=== PATIENT | female | born 2000 | race Two or more races ===

== ENCOUNTER → 2022-05-03 | Outpatient (CLI) | payer OTHER | END | disposition home or self-care (01) | LOC: LAB 09:32 | PROVIDERS: ATTEND Obstetrics & Gynecology | DX: Z34.00 Encounter for supervision of normal first pregnancy, unspecified trimester (principal); Z3A.00 Weeks of gestation of pregnancy not specified | CPT/HCPCS: 36415; 84702 ==

== ENCOUNTER → 2022-06-22 | Outpatient (CLI) | payer OTHER ==
[2022-06-22 10:14] LABS: Basophils # (auto) 0.1 10 ^3/uL (0-0.2); Basophils % (auto) 0.8 % (0.0-2.0); Eosinophils # (auto) 0 10 ^3/uL (0-0.8); Eosinophils % (auto) 0.6 % (0.0-7.0); Hematocrit 33.5 % (36.0-46.0); Hemoglobin 11.7 g/dL (12.2-16.2); Lymphocytes # (auto) 1.3 10 ^3/uL (0.4-5.4); Lymphocytes % (auto) 20.7 % (10.0-50.0); Mean Corpuscular Hgb Conc. 34.8 g/dL (32.0-36.0); Mean Corpuscular Volume 86.1 fL (80.0-100.0); Monocytes # (auto) 0.4 10 ^3/uL (0-1.3); Monocytes % (auto) 5.9 % (0.0-12.0); Neutrophils # (auto) 4.7 10 ^3/uL (1.6-8.6); Red Blood Cells 3.89 10^6/uL (4.0-5.20); Red Cell Distribution Width 13.3 % (11.8-14.3); White Blood Cell 6.5 10^3/uL (4.4-10.8)
[2022-06-22 10:58] LABS: Alcohol, Urine < 3.0 mg/dL (0-10); Amphetamine Screen, Urine NEGATIVE (NEGATIVE); Barbiturate Scree,Urine NEGATIVE (NEGATIVE); Benzodiazephine Screen, Urine NEGATIVE (NEGATIVE); Cannabinoid Screen, Urine NEGATIVE (NEGATIVE); Cocaine Screen, Urine NEGATIVE (NEGATIVE); Opiate Scree,Urine NEGATIVE (NEGATIVE); Phencyclidine Screen, Urine NEGATIVE (NEGATIVE)
[2022-06-23 08:07] LABS: RPR Non Reactive (Non Reactive)
== END | disposition home or self-care (01) ==
LOC: LAB 09:31
PROVIDERS: ATTEND Obstetrics & Gynecology
DX: Z34.00 Encounter for supervision of normal first pregnancy, unspecified trimester (principal); Z31.430 Encounter of female for testing for genetic disease carrier status for procreative management; Z11.3 Encounter for screening for infections with a predominantly sexual mode of transmission; N39.0 Urinary tract infection, site not specified; Z3A.00 Weeks of gestation of pregnancy not specified
CPT/HCPCS: 36415; 80307; 83036; 84112; 84144; 84702; 85025; 86592; 86703; 86762; 86850; 86900; 86901; 87086; 87340

== ENCOUNTER 2022-09-07 14:34 | Emergency (ER) | payer MEDICAID, OTHER ==
[~2022-09-07] VITALS: Ht 165.1 cm; Wt 75.0 kg
[2022-09-07 15:59] LABS: Albumin 3.2 g/dL (3.4-5.0); Calcium 8.8 mg/dL (8.5-10.1); Potassium 4.5 mmol/L (3.5-5.1)
[2022-09-07 16:02] LABS: BUN/Creatinine Ratio 14.3 (10.0-20.0); Bilirubin, Total 0.3 mg/dL (0.2-1.0); Total Protein 6.7 g/dL (6.4-8.2)
[2022-09-07 16:55] LABS: Basophils # (auto) 0 10 ^3/uL (0-0.2); Basophils % (auto) 0.2 % (0.0-2.0); Eosinophils # (auto) 0 10 ^3/uL (0-0.8); Eosinophils % (auto) 0.3 % (0.0-7.0); Hematocrit 32.6 % (36.0-46.0); Hemoglobin 11.1 g/dL (12.2-16.2); Lymphocytes # (auto) 1.1 10 ^3/uL (0.4-5.4); Mean Corpuscular Hemoglobin 30.8 pg (28.0-32.0); Mean Corpuscular Volume 90.6 fL (80.0-100.0); Monocytes # (auto) 0.8 10 ^3/uL (0-1.3); Monocytes % (auto) 6.7 % (0.0-12.0); Neutrophils # (auto) 9.8 10 ^3/uL (1.6-8.6); Neutrophils % (auto) 83.8 % (37.0-80.0); Nucleated Red Blood Cells % 0.1 %; Red Cell Distribution Width 13.2 % (11.8-14.3); White Blood Cell 11.7 10^3/uL (4.4-10.8)
[2022-09-07 18:53] VITALS: BP 120/67
[2022-09-07 19:36] LABS: Urine Bacteria NONE SEEN /hpf (None Seen); Urine Blood Negative /uL (Negative); Urine Mucus FEW (None Seen); Urine Specific Gravity 1.017 (1.001-1.035); Urine WBC 23 /hpf (0 - 5)
== END 2022-09-07 18:53 | disposition home or self-care (01) ==
LOC: ER 14:34
DX: O9A.212 Injury, poisoning and certain other consequences of external causes complicating pregnancy, second trimester (principal); S30.1XXA Contusion of abdominal wall, initial encounter; M79.604 Pain in right leg; Z3A.23 23 weeks gestation of pregnancy; V49.49XA Driver injured in collision with other motor vehicles in traffic accident, initial encounter; Y93.I9 Activity, other involving external motion; Y92.89 Other specified places as the place of occurrence of the external cause; Y99.8 Other external cause status
CPT/HCPCS: 36415; 76805; 80053; 81001; 85025

== ENCOUNTER → 2022-10-06 | Outpatient (CLI) | payer MEDICAID ==
[2022-10-06 08:46] LABS: Basophils # (auto) 0 10 ^3/uL (0-0.2); Basophils % (auto) 0.4 % (0.0-2.0); Eosinophils # (auto) 0.1 10 ^3/uL (0-0.8); Eosinophils % (auto) 0.8 % (0.0-7.0); Hematocrit 32.9 % (36.0-46.0); Hemoglobin 11.3 g/dL (12.2-16.2); Lymphocytes # (auto) 1.6 10 ^3/uL (0.4-5.4); Mean Corpuscular Hemoglobin 31.3 pg (28.0-32.0); Mean Corpuscular Hgb Conc. 34.4 g/dL (32.0-36.0); Mean Corpuscular Volume 90.9 fL (80.0-100.0); Monocytes # (auto) 0.7 10 ^3/uL (0-1.3); Monocytes % (auto) 8.2 % (0.0-12.0); Neutrophils # (auto) 6.2 10 ^3/uL (1.6-8.6); Neutrophils % (auto) 71.6 % (37.0-80.0); Nucleated Red Blood Cells % 0.1 %; Red Blood Cells 3.61 10^6/uL (4.0-5.20); Red Cell Distribution Width 13.5 % (11.8-14.3); White Blood Cell 8.6 10^3/uL (4.4-10.8)
== END | disposition home or self-care (01) ==
LOC: LAB 08:20
PROVIDERS: ATTEND Obstetrics & Gynecology
DX: Z34.00 Encounter for supervision of normal first pregnancy, unspecified trimester (principal); Z3A.00 Weeks of gestation of pregnancy not specified
CPT/HCPCS: 36415; 82951; 85025

== ENCOUNTER 2022-10-27 08:05 | Observation (INO) | payer MEDICAID | END 2022-10-27 10:15 | disposition home or self-care (01) | LOC: UNDOADMOB 08:05 → LDRP 08:05 → UNDODISOB 10:15 | PROVIDERS: ADMIT Obstetrics & Gynecology; ATTEND Obstetrics & Gynecology | DX: O60.03 Preterm labor without delivery, third trimester (principal); O69.5XX2 Labor and delivery complicated by vascular lesion of cord, fetus 2; Z3A.30 30 weeks gestation of pregnancy | CPT/HCPCS: 59025; 76818; 81002; 94760; G0378 ==

== ENCOUNTER 2022-11-03 07:45 | Observation (INO) | payer MEDICAID | END 2022-11-03 10:08 | disposition home or self-care (01) | LOC: LDRP 07:45 | PROVIDERS: ADMIT Obstetrics & Gynecology; ATTEND Obstetrics & Gynecology | DX: O69.5XX0 Labor and delivery complicated by vascular lesion of cord, not applicable or unspecified (principal); Z3A.31 31 weeks gestation of pregnancy | CPT/HCPCS: 59025; 76818; 81002; G0378 ==

== ENCOUNTER → 2022-11-30 | Outpatient (CLI) | payer MEDICAID ==
[2022-11-30 10:42] LABS: Basophils # (auto) 0 10 ^3/uL (0-0.2); Basophils % (auto) 0.5 % (0.0-2.0); Eosinophils # (auto) 0.1 10 ^3/uL (0-0.8); Eosinophils % (auto) 0.6 % (0.0-7.0); Hematocrit 36.6 % (36.0-46.0); Hemoglobin 12.3 g/dL (12.2-16.2); Lymphocytes # (auto) 1.3 10 ^3/uL (0.4-5.4); Lymphocytes % (auto) 15.4 % (10.0-50.0); Mean Corpuscular Hemoglobin 30.9 pg (28.0-32.0); Mean Corpuscular Hgb Conc. 33.8 g/dL (32.0-36.0); Mean Corpuscular Volume 91.6 fL (80.0-100.0); Monocytes # (auto) 0.7 10 ^3/uL (0-1.3); Monocytes % (auto) 8.1 % (0.0-12.0); Neutrophils # (auto) 6.3 10 ^3/uL (1.6-8.6); Neutrophils % (auto) 75.4 % (37.0-80.0); Nucleated Red Blood Cells % 0.1 %; Red Blood Cells 3.99 10^6/uL (4.0-5.20); Red Cell Distribution Width 13.6 % (11.8-14.3); White Blood Cell 8.3 10^3/uL (4.4-10.8)
[2022-12-01 07:06] LABS: RPR Non Reactive (Non Reactive)
[2022-12-01 10:06] LABS: Treponema Pallidum Ab LC Non Reactive (Non Reactive)
[2022-12-02 20:06] LABS: Treponema pallidum Ab (FTA-Ab) Non Reactive (Non Reactive)
== END | disposition home or self-care (01) ==
LOC: LAB 10:15
PROVIDERS: ATTEND Obstetrics & Gynecology
DX: Z34.00 Encounter for supervision of normal first pregnancy, unspecified trimester (principal); Z3A.00 Weeks of gestation of pregnancy not specified
CPT/HCPCS: 36415; 84112; 85025; 86592

== ENCOUNTER 2022-12-14 13:20 | Observation (INO) | payer MEDICAID ==
[2022-12-14 15:36] LABS: Fern Testing Negative
== END 2022-12-14 16:00 | disposition home or self-care (01) ==
LOC: LDRP 13:20
PROVIDERS: ADMIT Obstetrics & Gynecology; ATTEND Obstetrics & Gynecology
DX: O26.893 Other specified pregnancy related conditions, third trimester (principal); N89.8 Other specified noninflammatory disorders of vagina; O62.9 Abnormality of forces of labor, unspecified; Z3A.37 37 weeks gestation of pregnancy
CPT/HCPCS: 59025; 76818; 81002; 84112; 94760; G0378; Q0114

== ENCOUNTER 2022-12-28 14:31 | Inpatient (IN) | payer MEDICAID ==
[~2022-12-28] VITALS: Ht 165.1 cm; Wt 79.4 kg
[2022-12-28 15:49] LABS: Basophils # (auto) 0 10 ^3/uL (0-0.2); Basophils % (auto) 0.3 % (0.0-2.0); Eosinophils # (auto) 0.1 10 ^3/uL (0-0.8); Eosinophils % (auto) 0.7 % (0.0-7.0); Hematocrit 34.5 % (36.0-46.0); Hemoglobin 11.9 g/dL (12.2-16.2); Lymphocytes # (auto) 1.2 10 ^3/uL (0.4-5.4); Lymphocytes % (auto) 16.4 % (10.0-50.0); Mean Corpuscular Hemoglobin 31.1 pg (28.0-32.0); Mean Corpuscular Hgb Conc. 34.4 g/dL (32.0-36.0); Mean Corpuscular Volume 90.5 fL (80.0-100.0); Monocytes # (auto) 0.6 10 ^3/uL (0-1.3); Monocytes % (auto) 7.7 % (0.0-12.0); Neutrophils # (auto) 5.5 10 ^3/uL (1.6-8.6); Neutrophils % (auto) 74.9 % (37.0-80.0); Nucleated Red Blood Cells % 0.1 %; Red Blood Cells 3.82 10^6/uL (4.0-5.20); Red Cell Distribution Width 13.8 % (11.8-14.3); White Blood Cell 7.4 10^3/uL (4.4-10.8)
[2022-12-28 16:16] LABS: Alanine Aminotransferase 19 U/L (7-40); Albumin 3.8 g/dL (3.2-4.8); Alkaline Phosphatase 169 U/L (46-116); Anion Gap 7.6 (5-15); Aspartate Aminotransferase 15 U/L (13-40); BUN/Creatinine Ratio 19.6 (10.0-20.0); Blood Urea Nitrogen 10 mg/dL (9-23); Calcium 9.2 mg/dL (8.7-10.4); Carbon Dioxide 21.4 mmol/L (20-30); Chloride 107 mmol/L (98-107); Glucose 87 mg/dL (74-106); Sodium 136 mmol/L (136-145)
[2022-12-28 16:17] LABS: Bilirubin, Total 0.4 mg/dL (0.2-1.0); Total Protein 5.8 g/dL (5.7-8.2)
[2022-12-28 16:26] LABS: Urine Bacteria NONE SEEN /hpf (None Seen); Urine Blood 3+ /uL (Negative); Urine Clarity Clear (Clear); Urine Color Yellow (Yellow); Urine Mucus FEW (None Seen); Urine Protein, UAD Negative (Negative); Urine Specific Gravity 1.018 (1.001-1.035); Urine Urobilinogen Normal (Negative); Urine WBC 13 /hpf (0 - 5)
[2022-12-28 16:34] LABS: Amphetamine Screen, Urine Neg (NEGATIVE); Protein, Urine 14.5 mg/dL (0.0-11.9)
[2022-12-28 16:35] LABS: Benzodiazephine Screen, Urine Neg (NEGATIVE)
[2022-12-28 16:36] LABS: Barbiturate Scree,Urine Neg (NEGATIVE); Cannabinoid Screen, Urine Neg (NEGATIVE); Cocaine Screen, Urine Neg (NEGATIVE); Creatinine, Urine 63.12 mg/dL (30.0-125.0); Opiate Scree,Urine Neg (NEGATIVE); Phencyclidine Screen, Urine Neg (NEGATIVE); Urine Protein/Creatinine Ratio 0.23
[2022-12-28 16:41] LABS: INR 0.91 (0.9-1.15); Partial Thromboplastin Time 26.8 SEC (24.5-34.5); Prothrombin Time 9.6 sec (9.3-11.8)
[2022-12-28 17:14] LABS: Uric Acid 4.2 mg/dL (3.1-7.8)
[2022-12-28] MEDS ORDERED: WITCH HAZEL-GLYCERIN PAD TOP PRN (17:30)
[2022-12-28] MEDS ORDERED: PROMETHAZINE HCL 25 MG/ML 1ML IV PRN (17:30)
[2022-12-28] MEDS ORDERED: PHISODERM TOP SOLN 240ML BTL TOP PRN (17:30)
[2022-12-28] MEDS ORDERED: LACT. RINGERS/OXYTOCIN 20UNITS 500 ML IV ONE ×2 (17:30→18:00)
[2022-12-28] MEDS ORDERED: LIDOCAINE 2%HCL (LOCAL ANESTH.) INJ 20ML MDV IJ PRN (17:30)
[2022-12-28] MEDS ORDERED: DERMOPLAST 60ML BOTTLE TOP PRN (17:30)
[2022-12-28] MEDS ORDERED: LACTATED RINGER'S 1,000 ML IV ONE (17:45)
[2022-12-28] MEDS ORDERED: ROPIVACAINE HCL 200 ML EPI SCH (17:45)
[2022-12-28] MEDS ORDERED: ePHEDrine SULFATE 50 MG/ML AMP IV ONE (17:45)
[2022-12-28] MEDS: LACTATED RINGER'S 1,000 ML IV SCH ×2 (20:16→23:21)
[2022-12-28] MEDS ORDERED: ONDANSETRON HCL 4 MG/2 ML VIAL IV ONE (23:15)
[2022-12-29] MEDS: LACTATED RINGER'S 1,000 ML IV SCH ×2 (05:26→08:32)
[2022-12-29] MEDS ORDERED: diphenhdrAMINE HCL 50 MG/1 ML VL IV PRN (08:00)
[2022-12-29] MEDS ORDERED: miSOPROStol 100 mcg TAB SL PRN (08:00)
[2022-12-29] MEDS ORDERED: MINERAL OIL TOPICAL 10ml TOP PRN (08:00)
[2022-12-29] MEDS ORDERED: TRANEXAMIC ACID 1,000 MG in SODIUM CHL 0.9% 100 ML IV PRN (08:00)
[2022-12-29] MEDS ORDERED: ACETAMINOPHEN 325 MG TAB PO PRN ×2 (08:00→13:15)
[2022-12-29] MEDS ORDERED: LACT. RINGERS/OXYTOCIN 20UNITS 1,000 ML IV SCH (08:00)
[2022-12-29] MEDS ORDERED: TERBUTALINE SULFATE 1 MG/ML 1ML VIAL SC PRN (08:00)
[2022-12-29] MEDS ORDERED: ONDANSETRON HCL 4 MG/2 ML VIAL IV PRN (08:00)
[2022-12-29] MEDS ORDERED: CARBOPROST TROMETHAMINE 250 MCG/1ML VIAL IM PRN (08:00)
[2022-12-29 08:06] LABS: RPR Non Reactive (Non Reactive)
[2022-12-29] MEDS ORDERED: DIPHENOXYLATE W/ATROPINE 2.5 MG TAB PO SCH (12:00)
[2022-12-29] MEDS ORDERED: IBUPROFEN 600 MG TAB PO PRN (13:15)
[2022-12-29 14:44] VITALS: BP 138/63; PULSE 77; RESP 18; TEMP 98.6
[2022-12-29 19:01] VITALS: BP 122/73; PULSE 78; RESP 16; TEMP 98.4
[2022-12-29] MEDS ORDERED: DOCUSATE SOD 100 MG CAP PO SCH (22:00)
[2022-12-29 23:20] VITALS: BP 118/76; PULSE 69; RESP 16; TEMP 98; O2SAT 98
[2022-12-30 03:00] VITALS: BP 121/79; PULSE 66; RESP 18; TEMP 98.1; O2SAT 98
[2022-12-30 07:00] VITALS: BP 128/74; PULSE 73; RESP 18; TEMP 98; O2SAT 100
[2022-12-30 07:15] LABS: Basophils # (auto) 0 10 ^3/uL (0-0.2); Basophils % (auto) 0.3 % (0.0-2.0); Eosinophils # (auto) 0 10 ^3/uL (0-0.8); Eosinophils % (auto) 0.4 % (0.0-7.0); Hematocrit 28.2 % (36.0-46.0); Hemoglobin 9.6 g/dL (12.2-16.2); Lymphocytes # (auto) 1.6 10 ^3/uL (0.4-5.4); Lymphocytes % (auto) 14.2 % (10.0-50.0); Mean Corpuscular Hemoglobin 31.2 pg (28.0-32.0); Mean Corpuscular Volume 91.7 fL (80.0-100.0); Monocytes % (auto) 9.1 % (0.0-12.0); Neutrophils # (auto) 8.4 10 ^3/uL (1.6-8.6); Nucleated Red Blood Cells % 0.1 %; Red Blood Cells 3.07 10^6/uL (4.0-5.20); Red Cell Distribution Width 13.8 % (11.8-14.3); White Blood Cell 11.1 10^3/uL (4.4-10.8)
[2022-12-30 11:00] VITALS: BP 130/72; PULSE 80; RESP 18; TEMP 98.2; O2SAT 100
[2022-12-30] MEDS ORDERED: IBU600T PO (14:19)
[2022-12-30] MEDS ORDERED: FERR30CA PO (14:19)
[2022-12-30] MEDS ORDERED: DOCU-265 PO (14:19)
[2022-12-30] MEDS ORDERED: PREN1TAB89 PO (14:19)
[2022-12-30] MEDS ORDERED: ACET-1882 PO (14:19)
[2022-12-30 15:12] VITALS: BP 129/73; PULSE 71; RESP 18; TEMP 97.6; O2SAT 100
[2022-12-30 18:35] LABS: Urine Bacteria FEW /hpf (None Seen); Urine Blood 3+ /uL (Negative); Urine Clarity Clear (Clear); Urine Color Yellow (Yellow); Urine Protein, UAD Negative (Negative); Urine Urobilinogen Normal (Negative); Urine WBC 36 /hpf (0 - 5); Urine pH 6.5 (5.0-8.0)
[2022-12-30] MEDS ORDERED: CEPH250C PO (18:59)
[2022-12-30 23:06] LABS: Treponema pallidum Ab (FTA-Ab) Non Reactive (Non Reactive)
== END 2022-12-30 17:28 | disposition home or self-care (01) | DRG 560 ==
LOC: LDRP 14:31 → UNDOADMOB 14:31 → LDRP 14:36 → OBSVTOIN 17:22 → LDRP 20:11
PROVIDERS: ADMIT Obstetrics & Gynecology; ATTEND Obstetrics & Gynecology
PROC: 10E0XZZ Delivery of Products of Conception, External Approach (ICD-10-PCS; principal; 2022-12-29)
PROC: 0HQ9XZZ Repair Perineum Skin, External Approach (ICD-10-PCS; 2022-12-29)
PROC: 3E0R3BZ Introduction of Anesthetic Agent into Spinal Canal, Percutaneous Approach (ICD-10-PCS; 2022-12-29)
PROC: 00HU33Z Insertion of Infusion Device into Spinal Canal, Percutaneous Approach (ICD-10-PCS; 2022-12-29)
DX: O13.4 Gestational [pregnancy-induced] hypertension without significant proteinuria, complicating childbirth (principal); Z37.0 Single live birth; O14.94 Unspecified pre-eclampsia, complicating childbirth; D64.9 Anemia, unspecified; O90.81 Anemia of the puerperium; O70.0 First degree perineal laceration during delivery; Z3A.39 39 weeks gestation of pregnancy
CPT/HCPCS: 36415; 59025; 59200; 59409; 62282; 76818; 80053; 80307; 81001; 81002; 82570; 84156; 84550; 85025; 85610; 85730; 86592; 86850; 86900; 86901; 94760; 96360; 96361; 96365; 96366; 96374; G0378; J2405; J2590

== ENCOUNTER 2024-09-21 09:36 | Outpatient (CLI) | payer MEDICAID ==
[~2024-09-21 09:36] MED LIST: ACET-1882 PO; CEPH250C PO; DOCU-265 PO; FERR30CA PO; IBU600T PO; PREN1TAB89 PO
[2024-09-21 10:33] LABS: Basophils # (auto) 0 10 ^3/uL (0-0.2); Basophils % (auto) 0.7 % (0.0-2.0); Eosinophils # (auto) 0 10 ^3/uL (0-0.8); Eosinophils % (auto) 0.5 % (0.0-7.0); Hematocrit 37.4 % (36.0-46.0); Hemoglobin 12.5 g/dL (12.2-16.2); Lymphocytes # (auto) 1.5 10 ^3/uL (0.4-5.4); Lymphocytes % (auto) 24.2 % (10.0-50.0); Mean Corpuscular Hgb Conc. 33.4 g/dL (32.0-36.0); Mean Corpuscular Volume 86.6 fL (80.0-100.0); Monocytes # (auto) 0.5 10 ^3/uL (0-1.3); Monocytes % (auto) 7.5 % (0.0-12.0); Neutrophils # (auto) 4.1 10 ^3/uL (1.6-8.6); Neutrophils % (auto) 67.1 % (37.0-80.0); Nucleated Red Blood Cells % 0.1 %; Platelet Count (auto) 222 10^3/uL (140-450); Red Blood Cells 4.32 10^6/uL (4.0-5.20); Red Cell Distribution Width 13.8 % (11.8-14.3); White Blood Cell 6.1 10^3/uL (4.4-10.8)
[2024-09-21 10:53] LABS: Amphetamine Screen, Urine Neg (NEGATIVE); Barbiturate Scree,Urine Neg (NEGATIVE); Benzodiazephine Screen, Urine Neg (NEGATIVE); Cannabinoid Screen, Urine Neg (NEGATIVE); Cocaine Screen, Urine Neg (NEGATIVE); Opiate Scree,Urine Neg (NEGATIVE); Phencyclidine Screen, Urine Neg (NEGATIVE)
[2024-09-22 20:07] LABS: Chlamydia Trachomatis, NAA Negative (Negative); Neisseria gonorrhoeae, NAA Negative (Negative)
== END 2024-09-21 17:00 | disposition home or self-care (01) ==
LOC: LAB 09:36
PROVIDERS: ATTEND Obstetrics & Gynecology
DX: Z34.80 Encounter for supervision of other normal pregnancy, unspecified trimester (principal); Z3A.00 Weeks of gestation of pregnancy not specified
CPT/HCPCS: 36415; 80307; 83036; 84144; 84702; 85025; 86703; 86762; 86780; 86850; 86900; 86901; 87086; 87340

== ENCOUNTER 2025-03-27 16:02 | Observation (INO) | payer MEDICAID ==
[~2025-03-27] VITALS: Ht 167.6 cm; Wt 87.1 kg
[2025-03-27 16:54] LABS: Hematocrit 34.5 % (36.0-46.0); Hemoglobin 11.4 g/dL (12.2-16.2); Mean Corpuscular Hemoglobin 29.5 pg (28.0-32.0); Mean Corpuscular Volume 89.1 fL (80.0-100.0); Nucleated Red Blood Cells % 0.1 %
[2025-03-27 17:07] LABS: Alanine Aminotransferase 16 U/L (7-40); Albumin 3.8 g/dL (3.2-4.8); Anion Gap 8 (5-15); BUN/Creatinine Ratio 15.4 (10.0-20.0); Calcium 9.4 mg/dL (8.7-10.4); Carbon Dioxide 24 mmol/L (20-31); Chloride 107 mmol/L (98-107); Glucose 85 mg/dL (74-106); Potassium 4.4 mmol/L (3.5-5.1); Sodium 139 mmol/L (136-145); Total Protein 6.3 g/dL (5.7-8.2); Uric Acid 3.8 mg/dL (3.1-7.8)
[2025-03-27 17:09] LABS: Blood Urea Nitrogen 8 mg/dL (9-23); INR 0.91 (0.9-1.15); Partial Thromboplastin Time 24.8 SEC (24.5-34.5); Prothrombin Time 9.7 sec (9.3-11.8)
[2025-03-27 17:10] LABS: Alkaline Phosphatase 124 U/L (46-116); Bilirubin, Total 0.3 mg/dL (0.2-1.0)
[2025-03-27 17:17] LABS: Protein, Urine 6.6 mg/dL (1-14)
[2025-03-27 17:18] LABS: Urine Protein, UAD Negative (Negative)
--- NOTE | 2025-03-27 17:42 | DVH ---
BIOPHYSICAL PROFILE HISTORY: rule out Preeclampsia TECHNIQUE: Multiple real-time grayscale sonographic images through the gravid uterus of the fetus with duplex Doppler color flow. FINDINGS: BIOPHYSICAL PROFILE: breathing score: 2 movement score: 2 tone score: 2 Quantitative ROQUE score: 2 Total score: 8 out of 8 Single live intrauterine . lie cephalic. heart rate 145 beats per minute. Placenta fundally positioned. ROQUE 15.6 cm. IMPRESSION: Biophysical profile score: 8 out of 8
--- NOTE | 2025-03-27 18:07 | DVHDS2 ---
Physician Discharge Progress N Final Diagnosis: ruled out preeclampsia Operations or Procedures: Operations or Procedures 24yo IUP@34.6wks, pt sent down from Dr. Rios's office due to single elevated BP. +FM, denies UCs/LOF/VB/CUMMINGS/vision changes/RUQ pain. Denies UTI s/sx. VSS, normotensive, see CPN NST reactive fkc/ptl/preE precautions reviewed. Dr. Rios consulted, plan is for pt to f/u for scheduled visits in the office. Laboratory Tests Test 03/27/25 16:30 03/27/25 16:38 Range/Units Urine Color Colorless Yellow Urine Clarity Clear Clear Urine pH 6.5 5.0-9.0 Urine Specific [place] 1.009 1.001-1.035 Urine Protein Negative Negative Urine Ketones Negative Negative Urine Blood Negative Negative /uL Urine Nitrite Negative Negative Urine Bilirubin Negative Negative Urine Urobilinogen Normal Negative mg/dL Urine Leukocyte Esterase 3+ Negative /uL Urine RBC 2 0 - 4 /hpf Urine Microscopic WBC 6 H 0-5 /HPF Urine Squamous Epithelial Cells Few <5 /hpf Urine Bacteria Few H None Seen /hpf Urine Creatinine 24.24 L 30.0-125.0 mg/dL Urine Protein/Creatinine Ratio 0.27 Urine Glucose Normal Normal mg/dL Urine Total Protein 6.6 1-14 mg/dL White Blood Count 8.7 4.4-10.8 10^3/uL Red Blood Count 3.88 L 4.0-5.20 10^6/uL Hemoglobin 11.4 L 12.2-16.2 g/dL Hematocrit 34.5 L 36.0-46.0 % Mean Corpuscular Volume 89.1 80.0-100.0 fL Mean Corpuscular Hemoglobin 29.5 28.0-32.0 pg Mean Corpuscular Hemoglobin Concent 33.1 32.0-36.0 g/dL Red Cell Distribution Width 13.4 11.8-14.3 % Platelet Count 205 140-450 10^3/uL Mean Platelet Volume 8.4 6.9-10.8 fL Neutrophils (%) (Auto) 69.0 37.0-80.0 % Lymphocytes (%) (Auto) 18.8 10.0-50.0 % Monocytes (%) (Auto) 10.6 0.0-12.0 % Eosinophils (%) (Auto) 1.0 0.0-7.0 % Basophils (%) (Auto) 0.6 0.0-2.0 % Neutrophils # (Auto) 6.0 1.6-8.6 10 ^3/uL Lymphocytes # (Auto) 1.6 0.4-5.4 10 ^3/uL Monocytes # (Auto) 0.9 0-1.3 10 ^3/uL Eosinophils # (Auto) 0.1 0-0.8 10 ^3/uL Basophils # (Auto) 0.1 0-0.2 10 ^3/uL Nucleated Red Blood Cells 0.1 % Prothrombin Time 9.7 9.3-11.8 sec Prothrombin Time INR 0.91 0.9-1.15 Activated Partial Thromboplast Time 24.8 24.5-34.5 SEC Sodium Level 139 136-145 mmol/L Potassium Level 4.4 3.5-5.1 mmol/L Chloride Level 107 98-107 mmol/L Carbon Dioxide Level 24 20-31 mmol/L Anion Gap 8 5-15 Blood Urea Nitrogen 8 L 9-23 mg/dL Creatinine 0.52 L 0.550-1.02 mg/dL Glomerular Filtration Rate Calc 135 >90 mL/min BUN/Creatinine Ratio 15.4 10.0-20.0 Serum Glucose 85 74-106 mg/dL Uric Acid 3.8 3.1-7.8 mg/dL Calcium Level 9.4 8.7-10.4 mg/dL Total Bilirubin 0.3 0.2-1.0 mg/dL Aspartate Amino Transferase (AST) 17 13-40 U/L Alanine Aminotransferase (ALT) 16 7-40 U/L Alkaline Phosphatase 124 H 46-116 U/L Total Protein 6.3 5.7-8.2 g/dL Albumin 3.8 3.2-4.8 g/dL Other Interventions Other Interventions [address] [address] Ph: [phone] DIAGNOSTIC IMAGING Diagnostic Imaging Report : [id number] Signed PATIENT: TONY LUONG ACCT: [id number] UNIT: [id number] : 2000 LOC: [facility] ROOM / BED: TRIAGE1 / A AGE / SEX: 24 / F ADM STATUS: ADM IN SERVICE 1625 ORDERING PHYSICIAN: JOAO STEVE CNM PROCEDURE(s): BPP - BIOPHYSICAL PROFILE REASON: rule out Preeclampsia ORDER NUMBER(s): [id number], ACCESSION NUMBER(s): [id number] BIOPHYSICAL PROFILE HISTORY: rule out Preeclampsia TECHNIQUE: Multiple real-time grayscale sonographic images through the gravid uterus of the fetus with duplex Doppler color flow. FINDINGS: BIOPHYSICAL PROFILE: breathing score: 2 movement score: 2 tone score: 2 Quantitative ROQUE score: 2 Total score: 8 out of 8 Single live intrauterine . lie cephalic. heart rate 145 beats per minute. Placenta fundally positioned. ROQUE 15.6 cm. IMPRESSION: Biophysical profile score: 8 out of 8 ATED BY: OZIEL SU MD DICTATED DATE/TIME: 03/27/251743 SIGNED BY: OZIEL SU MD SIGNED DATE/TIME: 03/27/251743 CC: Condition on Discharge: Stable Disposition: Home Discharge Instructions: Diet: Regular Activity: No Restrictions, As Tolerated Medications: see med list Follow Up Care: Specialist: f/u with Dr. Rios in office as scheduled Discharge Statement: "Patient was advised to return to the ER or call 911 if any headaches, dizziness, shortness of breath, chest pain, abdominal pain, bleeding, fevers, or worsening of medical condition. Patient was counseled about treatment plan, medications, possible side effects, patientverbalized understanding. All questions were answered to the best of my ability. 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
== END 2025-03-27 17:58 | disposition home or self-care (01) ==
LOC: EDBD 16:02 → LDRP 16:02 → EDUNIT# 16:02
PROVIDERS: ADMIT Obstetrics & Gynecology; ATTEND Obstetrics & Gynecology
DX: O26.893 Other specified pregnancy related conditions, third trimester (principal); R10.11 Right upper quadrant pain; Z3A.34 34 weeks gestation of pregnancy; Z98.890 Other specified postprocedural states
CPT/HCPCS: 36415; 59025; 76819; 80053; 81001; 81002; 82570; 84156; 84550; 85025; 85610; 85730; 94760; A4649; G0378